=== PATIENT | male | born 2000 | race Hispanic/Latino ===

== ENCOUNTER 2021-05-23 11:12 | Emergency (ER) | payer BC ==
[~2021-05-23] VITALS: Ht 160 cm; Wt 43.5 kg
[2021-05-23] MEDS ORDERED: ONDANSETRON HCL INJ 2MG/ML 2ML 2 MG/ML VIAL IV STA (12:07)
[2021-05-23] MEDS ORDERED: FAMOTIDINE 20 MG/2 ML VIAL IV STA (12:07)
[2021-05-23] MEDS ORDERED: ONDANSETRON HCL INJ 2MG/ML 2ML 2 MG/ML VIAL ONE (12:09)
[2021-05-23] MEDS ORDERED: FAMOTIDINE 20 MG/2 ML VIAL IV ONE (12:10)
[2021-05-23] MEDS ORDERED: SODIUM CHLORIDE 0.9% 1000ML 1,000 ML ONE (12:10)
[2021-05-23] MEDS ORDERED: SODIUM CHLORIDE 0.9% 1000ML 1,000 ML IV ONE (12:15)
[2021-05-23] MEDS ORDERED: SODIUM CHLORIDE 0.9% 50ML 50 ML ONE (12:23)
[2021-05-23] MEDS ORDERED: IOPAMIDOL 370 MG/ML 200 ML INFUS..BTL INJ ONE (12:24)
[2021-05-23] MEDS ORDERED: PANTOPRAZOLE SO40 MG PO (13:50)
[2021-05-23] MEDS ORDERED: FAMOTIDINE40 MG PO (13:51)
[2021-05-23] MEDS ORDERED: ONDANSETRON ODT4 MG PO (13:52)
== END 2021-05-23 14:11 | disposition home or self-care (01) ==
LOC: FSED 11:36
DX: R10.13 Epigastric pain (principal); K92.0 Hematemesis; K29.70 Gastritis, unspecified, without bleeding; K21.9 Gastro-esophageal reflux disease without esophagitis; F41.9 Anxiety disorder, unspecified
CPT/HCPCS: 74177; 99284; J2405; J7030; Q9967

== ENCOUNTER 2025-04-23 10:38 | Emergency (ER) | payer OTHER ==
[~2025-04-23] VITALS: Ht 162.6 cm; Wt 49.1 kg
[~2025-04-23 10:38] MED LIST: FAMOTIDINE40 MG PO; LEVSIN-SL0.125 MG SL; ONDANSETRON ODT4 MG PO; PANTOPRAZOLE SO40 MG PO
[2025-04-23] MEDS: ONDANSETRON HCL INJ 2MG/ML 2ML 2 MG/ML VIAL IV ONE (11:45)
[2025-04-23] MEDS: LACTATED RINGER'S 1,000 ML IV ONE (11:45)
[2025-04-23] MEDS: MAGNESIUM/ALUMINUM/SIMETHICONE 30 ML UDC PO ONE (11:45)
[2025-04-23] MEDS: FAMOTIDINE 20 MG/2 ML VIAL IV ONE (11:46)
[2025-04-23] MEDS: KETOROLAC TROMETHAMINE 30 MG/ML VIAL IV ONE (11:46)
[2025-04-23] MEDS ORDERED: MAALOX MAXIMUM355 ML PO (12:26)
[2025-04-23] MEDS ORDERED: SORBITOL1 ML PO (12:26)
[2025-04-23] MEDS ORDERED: PANTOPRAZOLE SO40 MG PO (12:26)
[2025-04-23] MEDS ORDERED: ONDANSETRON ODT4 MG PO (12:26)
[2025-04-23 12:51] VITALS: PULSE 54; RESP 16; TEMP 98; O2SAT 99
== END 2025-04-23 12:51 | disposition home or self-care (01) ==
LOC: FSED 10:44
DX: R10.13 Epigastric pain (principal); K29.70 Gastritis, unspecified, without bleeding; R11.2 Nausea with vomiting, unspecified; K21.9 Gastro-esophageal reflux disease without esophagitis; F41.9 Anxiety disorder, unspecified
CPT/HCPCS: 74176; 80048; 80076; 81003; 85025; 96374; 96375; 99284; J1308; J1885; J2405; J7121